=== PATIENT | female | born 1975 | race Caucasian/White ===

== ENCOUNTER 2021-01-06 21:50 | Emergency (ER) | payer OTHER ==
[2021-01-06 23:42] LABS: HEMOGLOBIN 14.2 gm/dl (12.3-15.3); RED BLOOD COUNT 4.58 M/UL (4.00-5.10); WHITE BLOOD COUNT 12.3 K/UL (4.5-11.0)
[2021-01-07 00:05] LABS: BUN/CREATININE RATIO 20 (0-10)
== END 2021-01-07 00:30 | disposition home or self-care (01) ==
LOC: ER1 21:50
PROVIDERS: Family Medicine
DX: R00.0 Tachycardia, unspecified (principal); E11.9 Type 2 diabetes mellitus without complications; I10 Essential (primary) hypertension
CPT/HCPCS: 71046; 80053; 82550; 82553; 83874; 84439; 84443; 84484; 85025; 85379; 93005; 99285; Q9967

== ENCOUNTER → 2021-05-13 | Outpatient (CLI) | payer OTHER | LOC: HEART 5 04-13 11:00 → ECHO 04-13 11:00 → HEART 5 14:57 | DX: R07.9 Chest pain, unspecified (principal); I08.1 Rheumatic disorders of both mitral and tricuspid valves | CPT/HCPCS: 93306 ==

== ENCOUNTER → 2021-08-12 | Outpatient (CLI) | payer OTHER | LOC: MAMO 10:36 | DX: Z12.31 Encounter for screening mammogram for malignant neoplasm of breast (principal) | CPT/HCPCS: 77063; 77067 ==